=== PATIENT | male | born 1985 | race Caucasian/White ===

== ENCOUNTER 2017-11-13 16:40 | Emergency (ER) | payer OTHER ==
--- NOTE | 2017-11-13 18:14 | ED Physician Documentation ---
PD HPI LOWER EXT INJURY - Stated complaint Stated Complaint: LT LEG PX - Chief complaint Chief Complaint: Ext Problem - History obtained from History obtained from: Patient, Family - History of Present Illness PD HPI LOW EXT INJURY LOCATION: Left, Upper leg, Knee Type of injury: No: Twist, Blunt / blow Timing - onset: How many days ago Timing - duration: Days (has had days of pain from back to left thigh, and also having sharp pain in knee with bending.) Timing - details: Abrupt onset, Intermittant Worsened by: Moving (bending knee and straighten it), Palpating (lower kneecap) Associated symptoms: No: Weakness, Numbness, Tingling Similar symptoms before: Has not had sx before Recently seen: Not recently seen Review of Systems Constitutional: denies: Fever, Chills GI: denies: Abdominal Pain, Nausea, Vomiting Neurologic: denies: Focal weakness, Numbness PD PAST MEDICAL HISTORY - Past Medical History Past Medical History: Yes Cardiovascular: Hypertension Neuro: Other Psych: Depression, Anxiety, Post traumatic stress disorder Musculoskeletal: Chronic back pain Other Past Medical History: DJD - Past Surgical History Past Surgical History: Yes Ortho: Spine surgery - Present Medications Home Medications: Ambulatory Orders Medication Instructions Recorded Confirmed Gabapentin 900 mg PO TID 12/04/13 08/11/16 Propranolol [Inderal] 40 mg PO BID 12/04/13 08/11/16 QUEtiapine [SEROquel] 200 mg PO QPM 12/04/13 08/11/16 Sertraline HCl [Zoloft] 200 mg PO DAILY 12/04/13 08/11/16 oxyCODONE [Roxicodone] 5 mg PO BID 12/04/13 08/11/16 Methocarbamol [Robaxin] 500 mg PO TID PRN #20 tablet 09/05/14 08/11/16 Prazosin [Minipress] 4 mg PO DAILY 05/27/16 08/11/16 Butalb/Acetaminophen/Caffeine 11/13/17 [Fioricet 50-300-40 mg Capsule] Dexamethasone [Decadron] 4 mg PO DAILY #7 tablet 11/13/17 - Allergies Allergies/Adverse Reactions: Allergies Allergy/AdvReac Type Severity Reaction Status Date / Time No Known Drug Allergies Allergy Verified 11/13/17 18:01 - Social History Does the pt smoke?: Yes Smoking Status: Current every day smoker Does the pt drink ETOH?: Yes Does the pt have substance abuse?: No Substance Use and Type: Marijuana - Immunizations Immunizations are current?: Yes - POLST Patient has POLST: No PD ED PE NORMAL - Vitals Vital signs reviewed: Yes - General General: Alert and oriented X 3, No acute distress, Well developed/nourished - Cardiac Cardiac: RRR, No murmur - Respiratory Respiratory: Clear bilaterally - Abdomen Abdomen: Soft, Non tender - Back Back: Other (some tenderness in low back muscles. ) - Derm Derm: Normal color, Warm and dry - Extremities Extremities: No tenderness to palpate, Normal ROM s pain, Other (left knee with some tenderness lower aspect of the knee, without effusion. Ligament testing without laxity. ) - Neuro Neuro: Alert and oriented X 3, No motor deficit, No sensory deficit, Normal speech Results - Vitals Vitals: Oxygen O2 Source Room air PD MEDICAL DECISION MAKING - ED course Complexity details: reviewed results (some pain sounds like L3 (front of thigh) radiculitis but definitely some meniscal type knee pain. ), considered differential, d/w patient Departure - Departure Disposition: 01 Home, Self Care Clinical Impression: Lumbar radiculitis Knee meniscus pain Qualifiers: Laterality: left Qualified Code(s): M25.562 - Pain in left knee Condition: Stable Record reviewed to determine appropriate education?: Yes Follow-Up: Jacque Spencer MD [Primary Care Provider] - Prescriptions: Dexamethasone [Decadron] 4 mg PO DAILY #7 tablet Comments: You can increase your regular pain medicine to 4 times a day for the next 5 days as needed for pain. Add Decadron daily for the next 5-7 days as an anti- inflammatory. Continue your other medications. I think you have some nerve irritation from likely L3 level going down the thigh and also sounds like some knee pain which is likely from the cartilage. See if these improve over the next several days. There are no signs of blood clots based on ultrasound. Discharge Date/Time: 11/13/17 20:25
[2017-11-13] MEDS ORDERED: HYDROmorphone 1 MG/ML SYRINGE IM STA (18:34)
[2017-11-13] MEDS ORDERED: KETOROLAC 60 MG/2 ML VIAL IM STA (18:34)
[2017-11-13] MEDS ORDERED: DEXAMETHASONE 10 MG/ML VIAL PO STA (18:35)
--- NOTE | 2017-11-13 19:25 | XRAY Report ---
EXAM: LEFT KNEE RADIOGRAPHY EXAM DATE: 11/13/2017 07:03 PM. CLINICAL HISTORY: Knee pain today. COMPARISON: None. TECHNIQUE: 3 views. FINDINGS: Bones: Normal. No fractures or bone lesions. Joints: Normal. No effusion. No subluxations. Soft Tissues: Normal. No soft tissue swelling. IMPRESSION: Normal knee radiography. [facility] Referring Provider Line: [phone] SITE ID: [id number]
--- NOTE | 2017-11-13 20:08 | Ultrasound Preliminary Report ---
Exam: US DUPLEX EXT VEINS LEFT IMPRESSION: No evidence for deep venous thrombosis. [facility] SITE ID: [id number]
--- NOTE | 2017-11-13 20:08 | Ultrasound Report ---
EXAM: LEFT LOWER EXTREMITY VENOUS ULTRASOUND EXAM DATE: 11/13/2017 07:09 PM. CLINICAL HISTORY: Left Knee and lower leg pain for few days. COMPARISON: None. TECHNIQUE: Real-time sonographic vascular imaging was performed by the [employer] tube bender through the lower extremity utilizing both color-flow and Doppler spectral analysis. Multiple hostess party sales representative static lorraine ges were saved for review. FINDINGS: Common Femoral Vein (CFV): Normal. CFV-GSV Junction: Normal. Profunda Femoral Vein (PFV): Normal. Femoral Vein (FV) Prox: Normal. Femoral Vein (FV) Mid: Normal. Femoral Vein (FV) Dist: Normal. Popliteal Vein: Normal. Posterior Tibial Veins: Normal. Peroneal Veins: Normal. IMPRESSION: No evidence for deep venous thrombosis. [facility] Referring Provider Line: [phone] SITE ID: [id number]
[2017-11-13 20:29] VITALS: BP 121/77
== END 2017-11-13 20:25 | disposition home or self-care (01) ==
LOC: ED 16:40
DX: M54.16 Radiculopathy, lumbar region (principal); M25.562 Pain in left knee; I10 Essential (primary) hypertension; F17.200 Nicotine dependence, unspecified, uncomplicated
CPT/HCPCS: 73564; 93971; 96372; 99283; J1170

== ENCOUNTER 2019-03-08 14:52 | Emergency (ER) | payer OTHER ==
[2019-03-08 15:00] VITALS: BP 139/87
--- NOTE | 2019-03-08 15:24 | ED Physician Documentation ---
PD HPI OPHTHO - Stated complaint Stated Complaint: L EYE REDNESS - Chief complaint Chief Complaint: Heent - History obtained from History obtained from: Patient - History of Present Illness Timing - onset: Today Timing - duration: Hours Timing - details: Abrupt onset, Still present Location: Left Quality / character: Other (feels dry) Associated symptoms: Redness, Swelling. No: Tearing, Discharge, Matting, FB sensation, Photophobia, Double vision, Decreased vision, Loss of vision, Headache Contributing factors: Other (exposed to strep). No: Exposed to conjunctivitis Similar symptoms before: Has not had sx before Recently seen: Not recently seen - Additional information Additional information: Previously well 33-year-old male with PTSD has developed some redness to the lateral aspect of his left eye. He woke this morning with a feeling of dryness in his eye and he has not had any crusting or drainage from the eye or from the sinus and he is not having nasal congestion sore throat cough or fever. He has been exposed to his son who has strep. He does have issues with his eyes related to service in [place]. He is worried about pink eye. Review of Systems Constitutional: denies: Fever Eyes: reports: Irritation. denies: Loss of vision, Decreased vision, Photophobia, Discharge Ears: denies: Ear pain Nose: denies: Rhinorrhea / runny nose, Congestion Throat: denies: Sore throat Cardiac: denies: Chest pain / pressure, Palpitations Respiratory: denies: Dyspnea, Cough GI: denies: Abdominal Pain, Nausea, Vomiting : denies: Dysuria, Frequency PD PAST MEDICAL HISTORY - Past Medical History Past Medical History: Yes Cardiovascular: Hypertension Psych: Depression, Anxiety, Post traumatic stress disorder Musculoskeletal: Chronic back pain - Past Surgical History Past Surgical History: Yes Ortho: Spine surgery - Present Medications Home Medications: Ambulatory Orders Medication Instructions Recorded Confirmed Gabapentin 900 mg PO TID 12/04/13 08/11/16 Propranolol [Inderal] 40 mg PO BID 12/04/13 08/11/16 QUEtiapine [SEROquel] 200 mg PO QPM 12/04/13 08/11/16 Sertraline HCl [Zoloft] 200 mg PO DAILY 12/04/13 08/11/16 oxyCODONE [Roxicodone] 5 mg PO BID 12/04/13 08/11/16 Methocarbamol [Robaxin] 500 mg PO TID PRN #20 tablet 09/05/14 08/11/16 Prazosin [Minipress] 4 mg PO DAILY 05/27/16 08/11/16 Butalb/Acetaminophen/Caffeine 11/13/17 [Fioricet 50-300-40 mg Capsule] dexAMETHasone [Decadron] 4 mg PO DAILY #7 tablet 11/13/17 - Allergies Allergies/Adverse Reactions: Allergies Allergy/AdvReac Type Severity Reaction Status Date / Time No Known Drug Allergies Allergy Verified 03/08/19 15:00 - Social History Does the pt smoke?: No Smoking Status: Never smoker Does the pt drink ETOH?: Yes Does the pt have substance abuse?: Yes Substance Use and Type: Marijuana - Immunizations Immunizations are current?: Yes - POLST Patient has POLST: No PD ED PE NORMAL - Vitals Vital signs reviewed: Yes (hypertensive mild ) - General General: Alert and oriented X 3, No acute distress, Well developed/nourished - HEENT HEENT: Atraumatic, PERRL, EOMI, Moist mucous membranes, Pharynx benign, Dentition benign, Other (retraction of TM's bilateral. There is injection of the sclera on the lateral aspect of the eye consistent with rubbing it too hard. There is no drainage or matting present. There is no distortion of the iris, no hyphema and obvious FB on exam. ) - Neck Neck: Supple, no meningeal sign, No bony TTP - Cardiac Cardiac: RRR, No murmur - Respiratory Respiratory: No respiratory distress, Clear bilaterally - Abdomen Abdomen: Soft, Non tender - Back Back: No CVA TTP, No spinal TTP - Derm Derm: Normal color, Warm and dry, No rash - Extremities Extremities: No deformity, No edema - Neuro Neuro: Alert and oriented X 3, pants busheler 2-12 intact, No motor deficit, No sensory deficit, Normal speech Eye Opening: Spontaneous Motor: Obeys Commands Verbal: Oriented GCS Score: 15 - Psych Psych: Normal mood, Normal affect Results - Vitals Vitals: Vital Signs - 24 hr 03/08/19 14:56 Temperature 36.5 C Heart Rate 80 Respiratory 16 Rate Blood Pressure 139/87 H O2 Saturation 96 Oxygen O2 Source Room air PD MEDICAL DECISION MAKING - ED course Complexity details: considered differential, d/w patient ED course: 33-year-old male with redness to the lateral aspect of the left eye most consistent with a subconujunctival hemorrhage. Departure - Departure Disposition: 01 Home, Self Care Clinical Impression: Subconjunctival hemorrhage Qualifiers: Laterality: left Qualified Code(s): H11.32 - Conjunctival hemorrhage, left eye Condition: Stable Instructions: ED Eye Injury Subconj Hemorrhage [facility] [Other]
== END 2019-03-08 15:38 | disposition home or self-care (01) ==
LOC: ED 14:52
DX: H11.32 Conjunctival hemorrhage, left eye (principal); I10 Essential (primary) hypertension
CPT/HCPCS: 99282; 99283

== ENCOUNTER 2021-04-04 09:13 | Outpatient (CLI) | payer OTHER ==
--- NOTE | 2021-04-04 10:39 | MRI Report ---
PROCEDURE: Shoulder RT W/O INDICATIONS: RIGHT SHOULDER PAIN TECHNIQUE: Noncontrast oblique coronal T2 fast spin echo with fat saturation, oblique sagittal T1 spin echo and T2 fast spin echo with fat saturation, axial T1 spin echo and T2 fast spin echo with fat saturation t hrough the shoulder. COMPARISON: None. FINDINGS: Image quality: Excellent. Rotator cuff: Mild T2 signal elevation throughout the supraspinatus and infraspinatus tendons at the humeral insertion sites, indicating tendinopathy, extending to the muscular tendinous junctions. Supe rimposed low-grade partial thickness intrasubstance tearing of the posterior supraspinatus tendon at the muscular tendinous junction. Subscapularis tendon is a small low-grade intrasubstance tear within its superior aspect at the humeral insertion site. Low-grade partial-thickness intrasubstance tearin g of the mid infraspinatus tendon at the humeral insertion site extending to the muscular tendinous j unction. Teres minor tendon is intact. No rotator cuff atrophy. Bones and bursae: No bone marrow contusions or fractures. Mild acromioclavicular joint degeneration. The acromion demonstrates conventional anatomy, without an os acromiale. No pathologic subacromial /subdeltoid bursal fluid is present. Capsule and soft tissues: In the absence of intra-articular contrast, the labrum and glenohumeral li gaments appear intact. The long head of the biceps tendon demonstrates normal location and morpholog y. The rotator interval appears normal, without fibrosis. The coracohumeral ligament is normal in t hickness. IMPRESSION: 1. Supraspinatus and infraspinatus tendinopathy with superimposed low-grade partial thickness tears a s described above. 2. Low-grade partial-thickness tearing of the subscapularis tendon. 3. Acromioclavicular joint osteoarthritis. Reviewed by: Miriam Neff MD on 04/04/2021 10:38 AM PDT Approved by: Miriam Neff MD on 04/04/2021 10:38 AM PDT Station ID: [id number]
== END 2021-04-04 09:14 | disposition home or self-care (01) ==
LOC: DI 09:13
PROVIDERS: ATTEND Nurse Practitioner Acute Care
DX: M75.111 Incomplete rotator cuff tear or rupture of right shoulder, not specified as traumatic (principal); M19.011 Primary osteoarthritis, right shoulder

== ENCOUNTER 2024-01-20 14:45 | Emergency (ER) | payer OTHER ==
--- NOTE | 2024-01-20 14:54 | ED Physician Documentation ---
History of Present Illness - Stated complaint Stated Complaint: /SENT BY CLINIC - History obtained from History obtained from: Patient - Additonal information Additional information: 38-year-old gentleman with history of chronic back pain under pain management for same. This morning he noticed a swollen vein on his penis which is only mildly uncomfortable. 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 Pain is mild. PD PAST MEDICAL HISTORY - Past Medical History Cardiovascular: Hypertension Psych: Depression, Anxiety, Post traumatic stress disorder Musculoskeletal: Chronic back pain - Past Surgical History Past Surgical History: Yes Ortho: Spine surgery - Present Medications Home Medications: Ambulatory Orders Medication Instructions Recorded Confirmed Gabapentin 900 mg PO TID 12/04/13 08/11/16 Propranolol [Inderal] 40 mg PO BID 12/04/13 08/11/16 QUEtiapine [SEROquel] 200 mg PO QPM 12/04/13 08/11/16 Sertraline HCl [Zoloft] 200 mg PO DAILY 12/04/13 08/11/16 methocarbamoL [Robaxin] 500 mg PO TID PRN #20 tablet 09/05/14 08/11/16 Prazosin [Minipress] 4 mg PO DAILY 05/27/16 08/11/16 - Allergies Allergies/Adverse Reactions: Allergies Allergy/AdvReac Type Severity Reaction Status Date / Time No Known Drug Allergies Allergy Verified 01/20/24 14:56 - Social History Does the pt smoke?: No Smoking Status: Never smoker Does the pt drink ETOH?: Yes Does the pt have substance abuse?: Yes - Immunizations Immunizations are current?: Yes - POLST Patient has POLST: No PD ED PE NORMAL - Vitals Vital signs reviewed: Yes - General General: Alert and oriented X 3, No acute distress - Abdomen Abdomen: Non tender - Male Male : Other (Circumcised genitalia, just proximal to the glans on the left side of the penis there is a firm clot off small vein measuring less than 2 cm long. 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 Confirmed conservative treatments with Dr. Neal her urologist by phone. Departure - Departure Disposition: 01 Home, Self Care Clinical Impression: Mondor's disease Condition: Good Record reviewed to determine appropriate education?: Yes Instructions: ED Phlebitis Superficial Follow-Up: Rai Neal MD [Provider Admit Priv/Credential] - Comments: Our urologist recommends no masturbation for a month. But states other forms of sexual activity are okay. You can follow-up with him in the office in a week for recheck. Call the number for the appointment. In the meantime take ibuprofen per package instructions and you can apply warm compresses. Return if worse.
[2024-01-20 14:57] VITALS: BP 136/97; O2SAT 99
== END 2024-01-20 15:20 | disposition home or self-care (01) ==
LOC: ED 14:45
DX: I80.8 Phlebitis and thrombophlebitis of other sites (principal); G89.29 Other chronic pain; M54.9 Dorsalgia, unspecified; I10 Essential (primary) hypertension
CPT/HCPCS: 99281; 99283